=== PATIENT | male | born 1965 ===

== ENCOUNTER 2024-09-05 15:37 | Inpatient (IN) ==
[2024-09-05] MEDS ORDERED: POLYETHYLENE (MIRALAX) 17 GM PACK PO PRN (16:05)
--- NOTE | 2024-09-05 16:55 | History & Physical Report ---
Date of Service September 05, 2024 Assessment & Plan (1) NSTEMI (non-ST elevated myocardial infarction): Plan: -suggested by significantly elevated troponin -could be reactive to viral illness but significantly elevated BNP suggests underlying heart failure as well -ECG unremarkable, patient with no chest pain at this time -could be type 2 MA pending further workup, differential includes pericarditis, vavlular disease, viral cardiomyopathy, hyperthyroidism Plan: -check ESR/CRP -ordered basic lab workup, trend troponins, risk stratifcation labs -continue heparin -cardiology consulted, appreciate recs -telemetry monitoring in PCU -echo ordered (2) New onset of congestive heart failure: Plan: -strongly suggested by BNP of 6700, unlikely to be reactive -does have elevated JVP, trace pitting edema in bilateral LE although not grossly fluid overloaded Plan: -f/u echo results -telemetry monitoring (3) Viral respiratory illness: Plan: -no leukocytosis or left shift, or other markers of bacterial infection Plan: -check viral panel Plan I spent a total of 80 minutes in direct patient care, including [id number] time with the patient and/or family, reviewing medical records, ordering and reviewing diagnostic tests, and coordinating care with other healthcare providers. This time includes: history taking, physical examination, medical decision making, counseling, ECG interpretation, imaging interpretation, lab interpretation, orders, and education, excluding time spent in the performance of separately billed services. Admission and Anticipated Discharge Date Admission Date: September 05, 2024 History of Present Illness Chief Complaint: -nausea, vomiting, chills, SOB Primary Care Provider: NO PCP 59 yo male with pmhx of HTN, insomnia who presented to OSH for nausea, vomiting, chills and SOB. Found to have Na of 123, troponin of 1500, transferred to [facility] for higher level of care. 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 Patient seen and examined at bedside. present as well. Patient states he has been feeling ill for a few days. Had fever, cough, chills at home, fever up to 104. Began to improve on , but then got worse again. States he did not have chest pain at any time. Did endorse some SOB. Patient very active at home. Has had loss of appetite as well. Fatigue and weakness present. No tobacco use, no drug use, minimal alcohol use, full code at this time. OSH data: tachycardic to 93 otherwise hemodynamically stable, troponin Hs of 1600, CT chest without contrast pertinent for bilateral small pleural effusions, given aspirin, creatinine 1.23, Na 123, mildly elevated transaminases, BNP of 6700, D-dimer of 1091. Allergies Allergy/AdvReac Type Severity Reaction Status Date / Time Penicillins Allergy Mild Rash Verified 09/05/24 17:28 Past Med/Surg History Problem List New onset of congestive heart failure Viral respiratory illness NSTEMI (non-ST elevated myocardial infarction) Social History Smoking Status: Never smoker Second Hand Exposure: No; Do You Dip or Chew Tobacco: No; Tobacco Cessation Education Requested by Patient: No Hx Alcohol Use: No Hx Substance Use: No Preferred Language: Hungarian Communication Ability: Effective Diesel Machinist Required: No Beliefs That Will Affect Care: None Current Living Situation: Spouse Other Information That Helps Us Care for You: No Feels Safe at Home: Yes Safety Concerns: Feels Safe At This Time Assistive Devices: None Review of Systems Review of Systems: CONSTITUTIONAL: fatigue, weakness, chills EYES: Patient denies any visual symptoms. EARS, NOSE, AND THROAT: No difficulties with hearing. No symptoms of rhinitis or sore throat. CARDIOVASCULAR: Patient denies chest pains, palpitations, orthopnea and paroxysmal nocturnal dyspnea. RESPIRATORY: No dyspnea on exertion, no wheezing or cough. GI: No nausea, vomiting, diarrhea, constipation, abdominal pain, hematochezia or melena. : No urinary hesitancy or dribbling. No nocturia or urinary frequency. No abnormal urethral discharge. MUSCULOSKELETAL: No myalgias or arthralgias. NEUROLOGIC: No chronic headaches, no seizures. Patient denies numbness, tingling or weakness. PSYCHIATRIC: Patient denies problems with mood disturbance. No problems with anxiety. ENDOCRINE: No excessive urination or excessive thirst. DERMATOLOGIC: Patient denies any rashes or skin changes. Physical Exam Physical Exam: Gen: A&O 3 NAD HEENT: NCAT, EOMI, not icteric. External ears normal. No rhinorrhea. Moist mucous membranes. Elevated JVP to midneck Neck: Supple, full range of motion, no observable masses, No meningeal sign. Lungs: No Respiratory distress. CV: RRR, no edema. Abdomen: Soft, nondistended, No rebound tenderness. MSK: No joint swelling, no redness. No pitting edema bilaterally Skin: No rashes, petechiae, lesions. Normal color per patient. Neuro: Normal Gait, Grossly intact. Psych: Appropriate for situation. Results & Data Results & Data Vital Signs (Past 12 Hours) Vital Signs Temp Pulse Resp BP Pulse Ox O2 Del Method 09/05/24 16:43 87 09/05/24 16:04 37.1 C 14 134/88 98 Room Air Laboratory Results -personally reviewed, elevated BNP suggestive of new onset heart failure, elevated troponin suggestive of NSTEMI, ECG without changes Medications Administered Heparin Sodium/Dextrose (Heparin 39189 Unit/500 Ml D5w) 25,000 units in 500 mls @ 30 mls/hr IV .[id number] [facility]; Protocol Stop: 10/05/24 16:29 Last Admin: 09/05/24 17:07 Dose: 1,500 units/hr, 30 mls/hr Documented By: AM Co-signed By: DANIS Code Status & VTE Plan Code Status -full code VTE Prophylaxis Plan VTE Prophylaxis will be ordered: Yes
[2024-09-05] MEDS: Heparin IV Adult Wt-Based Standard *NO* INITIAL Bolus Protocol IV STA (17:07)
[2024-09-05] MEDS: HEPARIN 25000 UNIT/500 ML D5W 25,000 UNITS/500 ML BAG IV SCH (17:07)
[2024-09-05 19:25] LABS: Hematocrit (blood only) 38.8 % (42.0-52.0); Hemoglobin 13.8 g/dl (14.0-18.0); Immature Granulocytes # (auto) 0.04 K/uL (0.01-0.20); Immature Granulocytes % (auto) 0.5 %; Mean Corpuscular Hemoglobin 32.2 pg (25.0-34.0); Mean Corpuscular Volume 90.4 fL (80.0-100.0); Platelet Count 187 K/uL (130-400); RDW Standard Deviation 40.7 fL (36.4-46.3); Red Blood Count 4.29 M/uL (4.70-6.10); White Blood Count 8.82 K/ul (4.8-10.8)
[2024-09-05 19:30] LABS: Hemoglobin A1C 5.1 % (4.5-5.6)
[2024-09-05 19:36] LABS: Anion Gap 10.0 (3-11); Bilirubin,Total 1.6 mg/dl (0.2-1.0); Calcium 8.7 mg/dl (8.6-10.3); Carbon Dioxide 23.0 mmol/L (21-32); Chloride 94.0 mmol/L (98-107); Potassium 3.7 mmol/L (3.5-5.1); Sodium 127.0 mmol/L (136-145)
[2024-09-05 19:42] LABS: Alanine Aminotransferase 46.0 U/L (7-52); Albumin Globulin Ratio 1.1 (0.9-2); Alkaline Phosphatase 109.0 U/L (34-104); Blood Urea Nitrogen 21.0 mg/dl (6-23); Cholesterol 155.0 mg/dl (0-200); Creatinine Clr Calc Pharmacy 75.3 ml/min; Globulin 3.4 gm/dl (2.5-4.0); Glucose 130.0 mg/dl (70-99(Fasting)); HDL Cholesterol 31.0 mg/dl; Total Protein 7.0 gm/dl (6.0-8.3); Triglycerides 128.0 mg/dl (0-150)
[2024-09-05 19:56] LABS: Thyroid Stimulating Hormone 1.322 uIu/ml (0.300-4.500)
[2024-09-05 20:05] LABS: INR 1.0 (0.9-1.1); Partial Thromboplastin Time 40 Seconds (21-31); Prothrombin Time 10.8 Seconds (9.0-12.0)
[2024-09-05] MEDS: ATORVASTATIN 40 MG TAB PO SCH (20:27)
[2024-09-05 21:33] LABS: Chlamydia pneumoniae PCR Not Detected (NotDetected); Coronavirus 229E PCR Not Detected (NotDetected); Coronavirus CoV-2 (COVID19)PCR Not Detected (NotDetected); Coronavirus HKU1 PCR Not Detected (NotDetected); Coronavirus NL63 PCR Not Detected (NotDetected); Coronavirus OC43PCR Not Detected (NotDetected); Human Metapneumovirus PCR Not Detected (NotDetected); Parainfluenza Virus 1 PCR Not Detected (NotDetected); Parainfluenza Virus 2 PCR Not Detected (NotDetected); Parainfluenza Virus 3 PCR Not Detected (NotDetected); Parainfluenza Virus 4 PCR Not Detected (NotDetected); Respiratory Syncytial VirusPCR Not Detected (NotDetected); Rhinovirus/Enterovirus PCR Not Detected (NotDetected)
[2024-09-05] MEDS: ACETAMINOPHEN 325 MG TAB PO PRN (21:42)
[2024-09-05 22:04] LABS: Magnesium 2.2 mg/dl (1.7-2.4)
--- NOTE | 2024-09-05 22:18 | Communication Note ---
Date of Service: September 05, 2024 Patient noted to be febrile and tachycardic. Patient with bronchitis symptoms as per her account. Procalcitonin noted to be elevated AP Sepsis possible atypical pneumonia CS, Doxycycline
[2024-09-05] MEDS: ACETAMINOPHEN 325 MG TAB PO STA (23:02)
[2024-09-05 23:29] LABS: Sodium 126.0 mmol/L (136-145)
[2024-09-06 00:15] LABS: ANTI-Xa, UFH(UnfractionatedHep 0.28 IU/ml (0.3-0.7)
[2024-09-06] MEDS: CEFEPIME 2000MG 2,000 MG/20 ML SYR IV SCH (00:54)
[2024-09-06] MEDS: FUROSEMIDE INJ 20 MG/2 ML VIAL IV ONE (00:54)
--- NOTE | 2024-09-06 00:56 | XRay Report ---
Exam(s): XR CXR 1 VIEW EXAM: XR Chest, 1 View CLINICAL HISTORY: Reason for exam: hyponatremia,fever. TECHNIQUE: Frontal view of the chest. COMPARISON: No relevant prior studies available. FINDINGS: Lungs: Mild peribronchial thickening of the central and lower lobe bronchi with increased interstitial opacities in the lower lobes. No consolidation. Pleural space: Unremarkable. No pneumothorax. Heart: Unremarkable. No cardiomegaly. Mediastinum: Unremarkable. Normal mediastinal contour. Bones/joints: Unremarkable. No acute fracture. IMPRESSION: Bronchitis, which may be of infectious or inflammatory etiologies. No consolidation or pleural effusion. Electronically signed by: Eva Sutherland MD 09/06/24 00:55 AM
[2024-09-06] MEDS: DOXYCYCLINE HYCLATE 100 MG in DEXTROSE 5% MINI-B 100 ML IV STA (02:56)
[2024-09-06] MEDS: ONDANSETRON INJ 2 MG/ML 2 ML VIAL IV PRN (04:59)
[2024-09-06 08:16] LABS: Hematocrit (blood only) 34.4 % (42.0-52.0); Hemoglobin 12.5 g/dl (14.0-18.0); Mean Corpuscular Hemoglobin 32.5 pg (25.0-34.0); Mean Corpuscular Volume 89.4 fL (80.0-100.0); Platelet Count 211 K/uL (130-400); RDW Standard Deviation 40.5 fL (36.4-46.3); Red Blood Count 3.85 M/uL (4.70-6.10); White Blood Count 9.69 K/ul (4.8-10.8)
[2024-09-06 08:33] LABS: Alanine Aminotransferase 45.0 U/L (7-52); Albumin Globulin Ratio 1.3 (0.9-2); Alkaline Phosphatase 122.0 U/L (34-104); Anion Gap 8.0 (3-11); Bilirubin,Total 1.5 mg/dl (0.2-1.0); Blood Urea Nitrogen 21.0 mg/dl (6-23); Calcium 8.3 mg/dl (8.6-10.3); Carbon Dioxide 25.0 mmol/L (21-32); Chloride 95.0 mmol/L (98-107); Creatinine Clr Calc Pharmacy 72.1 ml/min; Globulin 2.8 gm/dl (2.5-4.0); Glucose 118.0 mg/dl (70-99(Fasting)); Magnesium 2.1 mg/dl (1.7-2.4); Potassium 3.4 mmol/L (3.5-5.1); Sodium 128.0 mmol/L (136-145); Total Protein 6.3 gm/dl (6.0-8.3)
[2024-09-06 08:42] LABS: ANTI-Xa, UFH(UnfractionatedHep 0.36 IU/ml (0.3-0.7)
[2024-09-06] MEDS: ASPIRIN 81 MG ECTAB PO SCH (08:45)
--- NOTE | 2024-09-06 11:01 | Cardiology Consultation ---
Date of Consultation September 06, 2024 Assessment & Plan (1) NSTEMI (non-ST elevated myocardial infarction): (2) Viral respiratory illness: Plan 59 year male with past medical history of HTN, presents from OSH with elevated troponin, recent viral URI. Troponin elevated, peaked at 909, now downtrending. ESR and CRP elevated. EKG with sinus rhythm, no ischemic changes. - feels well today on exam, denies chest pain - troponin downtrending, low suspicion of ACS, due to recent viral infection, consider myocarditis, pericarditis - echo read pending - small pericardial effusion on preliminary echo read, no wall motion abnormality, stop heparin - start colchicine 0.6 mg twice daily for minimum 3 months - continue aspirin, atorvastatin - continue to monitor on telemetry - follow up with outpatient cardiology Case discussed with attending physician, further recommendations per Dr. Villareal. I spent a total of 30 minutes on the date of service in preparation, delivery, and documentation of the care provided to this patient excluding any time spent in the performance of separately billed services. This visit was a split-shared visit with the substantial portion of the decision making performed by the supervising drywall applicator/billing provider. Aleksandra Lacy PA-C [facility] Cardiology [facility] Supervising Physician Co-Signing Physician Notes I have reviewed the advanced practitioner's documentation on the date of service referenced in note, and I agree with, and take responsibility for the plan of care. 59-year-old male with known history of hypertension presents with 3 days of h igh-grade fevers 104, viral symptoms generalized weakness chest discomfort worse with movement breathing. Went to [facility] noted to have significantly elevated troponin transferred to admitting for further evaluation. Patient denies anginal symptoms Assessment and plan Elevated troponins: In the setting of NSTEMI fever; inflammatory markers C RP is elevated, Troponins peaked at 909 downtrending Echocardiogram mild diffuse reduced function RV dilatation Clinical picture suggestive of myocarditis. Start colchicine Continue with Lipitor I spent a total of [40] minutes coordinating, documenting, and providing care for this patient excluding time spent in the performance of separately billed services or time spent by another provider. History of Present Illness Reason for Consultation: NSTEMI Requesting Physician: [facility] hospital[facility] Attending Physician: Mireya Conn MD History of Present Illness 59-year-old male with past medical history of hypertension, who initially presented to [facility] with nausea, chills, shortness of breath. 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 States he was not feeling well for a few days, thought it was a URI. Had mild shortness of breath, fatigue. Worsened so thought he should be checked. Labs with hyponatremia, elevated troponin 909 to 416, elevated CRP and ESR, BNP 537. EKG with NSR, no ischemic changes. Chest x-ray with bronchitis, no pleural effusion. Was started on heparin gtt. On exam today, he states he is feeling ok. Denies chest pain, shortness of breath, lightheadedness. Is active at baseline, no recent change in activity tolerance. Denies tobacco, drug use. Rare alcohol use. No history of LA, cardiac stents. Family history positive for mother with LA in her 60s. Allergies Allergy/AdvReac Type Severity Reaction Status Date / Time Penicillins Allergy Mild Rash Verified 09/06/24 14:38 Home Medications Medication Instructions Recorded Confirmed Type lisinopril 20 mg tablet 20 mg PO BID 09/06/24 09/06/24 History Patient History Social History Smoking Status: Never smoker Second Hand Exposure: No; Do You Dip or Chew Tobacco: No; Tobacco Cessation Education Requested by Patient: No Hx Alcohol Use: No Hx Substance Use: No Preferred Language: Icelandic Communication Ability: Effective Bakery Sales Clerk Required: No Beliefs That Will Affect Care: None Current Living Situation: Spouse Other Information That Helps Us Care for You: No Feels Safe at Home: Yes Safety Concerns: Feels Safe At This Time Assistive Devices: None Review of Systems Review of Systems: CONSTITUTIONAL: No change in weight, No weakness, No fatigue and No fevers, No sweats or chills. PULMONARY: No cough, sputum, or hemoptysis, No wheezing, No shortness of breath and No recent change in breathing. CARDIOVASCULAR: No chest pain, No dyspnea on exertion, No edema, No palpitations and No syncope. GASTROINTESTINAL: No abdominal pain, No change in bowel habits, No significant heartburn, No nausea, No vomiting, No diarrhea, No constipation, No blood in stools or black tarry stools. No dysphagia. HEMATOLOGIC: No abnormal bleeding and No bruising. NEUROLOGICAL: Normal balance, No headaches and No weakness. Physical Exam Physical Exam: General: No acute distress. A+Ox3. HEENT: Normocephalic. Atraumatic. PERRL. EOMI. Conjunctiva and sclera clear. NECK: No carotid bruits. No JVD. Carotid upstrokes are brisk. Heart: RRR. S1 and S2 noted. No murmur. No rubs or gallops. PMI non displaced. Nontender to palpation of chest. Lungs: Clear to auscultation. No wheezes. No rhonchi. No rales. Abdomen: Normal bowel sounds. Soft. Nontender. No masses or organomegaly. No abdominal bruits. Extremities: No edema. No clubbing or cyanosis. Pulses: radial=2/4, posterior tibial=2/4, dorsalis pedis = 2/4. NEURO: No focal deficits. PSYCH: Appropriate affect and insight. Results & Data Vital Signs (Past 12 Hours) Vital Signs Temp Pulse Resp BP Pulse Ox O2 Del Method 09/06/24 07:31 37.3 C 87 18 127/79 98 Room Air 09/06/24 03:35 37.0 C 82 14 117/79 97 Room Air 09/05/24 23:42 37.7 C H Laboratory Results Cardiac Enzymes 09/05/24 09/05/24 09/06/24 Range/Units 19:02 22:58 08:02 AST 40 H 36 (13-39) U/L Troponin I High Sens 909.5 H* 416.5 H* D (0-20) pg/ml B-Natriuretic Peptide 537 H (0-100) pg/ml Coagulation 09/05/24 Range/Units 19:02 PT 10.8 (9.0-12.0) Seconds APTT 40 H (21-31) Seconds B-Natriuretic Peptide 537 H (0-100) pg/ml Lipids 09/05/24 Range/Units 19:02 Triglycerides 128 (0-150) mg/dl Cholesterol 155 (0-200) mg/dl HDL Cholesterol 31 mg/dl Cholesterol/HDL Ratio 5.0 (0-5) CBC 09/05/24 09/06/24 Range/Units 19:02 08:02 WBC 8.82 9.69 (4.8-10.8) K/ul RBC 4.29 L 3.85 L (4.70-6.10) M/uL Hgb 13.8 L 12.5 L (14.0-18.0) g/dl Hct 38.8 L 34.4 L (42.0-52.0) % Plt Count 187 211 (130-400) K/uL Neut # (Auto) 7.02 H (1.40-6.50) K/uL Lymph # (Auto) 0.85 L (1.20-3.40) K/uL Marshall # (Auto) 0.63 H (0.11-0.59) K/uL Eos # (Auto) 0.26 (0.00-0.50) K/uL Baso # (Auto) 0.02 (0.00-0.20) K/uL Comprehensive Metabolic Panel 09/05/24 09/05/24 09/06/24 Range/Units 19:02 22:58 08:02 Sodium 127 L 126 L 128 L (136-145) mmol/L Potassium 3.7 3.4 L (3.5-5.1) mmol/L Chloride 94 L 95 L (98-107) mmol/L Carbon Dioxide 23 25 (21-32) mmol/L BUN 21 21 (6-23) mg/dl Creatinine 1.16 1.21 (0.6-1.4) mg/dl Glucose 130 H 118 H (70-99(Fasting)) mg/dl Calcium 8.7 8.3 L (8.6-10.3) mg/dl AST 40 H 36 (13-39) U/L ALT 46 45 (7-52) U/L Alkaline Phosphatase 109 H 122 H (34-104) U/L Total Protein 7.0 6.3 (6.0-8.3) gm/dl Albumin 3.6 3.5 (3.4-5.0) gm/dl Intake and Output 09/05/24 09/06/24 09/06/24 22:59 06:59 14:59 Intake Total 188 / 693.5 505.5 / 693.5 266.5 / 266.5 Output Total 900 / 2200 1300 / 2200 375 / 375 Balance -712 / -1506.5 -794.5 / -1506.5 -108.5 / -108.5 Intake: IV 68 / 333.5 265.5 / 333.5 266.5 / 266.5 Doxycycline Hyclate 100 mg In 100 / 100 Dextrose 5% Mini-B 100 ml @ 50 mls/hr IV NOW STA Rx#:[id number] Heparin 43069 Unit/500 ml D5w 68 / 233.5 165.5 / 233.5 266.5 / 266.5 25,000 units In 500 ml @ 1,600 UNITS/HR 32 mls/hr IV .[id number] [facility] Rx#:[id number] Oral 120 / 360 240 / 360 Output: Urine 900 / 2200 1300 / 2200 375 / 375 Other: Weight 88.451 kg 90.2 kg Weight Measurement Method Built in [facility] Built in [facility] Diagnostic Findings EKG 09/05/24: NSR 90 bpm Telemetry with sinus with PVCs, 80-90 bpm
--- NOTE | 2024-09-06 12:08 | Hospitalist Progress Note ---
Date of Service September 06, 2024 Assessment & Plan (1) New onset of congestive heart failure: (2) NSTEMI (non-ST elevated myocardial infarction): (3) Viral respiratory illness: Plan Pt is a 59 yo male with pmhx of HTN, insomnia who presented to OSH for nausea, vomiting, chills and SOB. Found to have Na of 123, troponin of 1500, transferred to [facility] for higher level of care. 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 NSTEMI (non-ST elevated myocardial infarction) suggested by significantly elevated troponin, 909.5 to 416.5 could be reactive to viral illness, possible CHF with elevated BNP of 6700 at OSH, currently >500 here ECG unremarkable, patient with no chest pain at this time could be type 2 MT pending further workup, differential includes pericarditis, valvular disease, viral cardiomyopathy, hyperthyroidism ESR/CRP elevated Viral panel unremarkable Chest XRAY noting bronchitis changes Chest CTA pending Echo pending IV heparin Cardiology consulted, appreciate recs Monitor on telemetry Congestive heart failure suggested by BNP of 6700, unlikely to be reactive On admission had, elevated JVP, trace pitting edema in bilateral LE although not grossly fluid overloaded f/u echo results telemetry monitoring Hyponatremia Na 123 at outside hospital, currently 128 today Urine sodium and osmolality pending In setting of respiratory findings on imaging, legionella ag ordered and pending Consider Nephrology input Bronchitis Noted on chest XR CTA chest ordered and pending Given concern for legionella, doxycycline switched to empiric levaquin Continue to monitor Diet: HH, low sodium DVT prophylaxis: IV heparin as above Dispo: home once medically stable Admission and Anticipated Discharge Date Admission Date: September 05, 2024 Subjective Pt was seen in the AM, resting comfortably in bed Denied chest pain, SOB or palps at the time asking about eating Review of Systems Review of Systems: All systems reviewed & are unremarkable except as noted in Subjective Physical Exam Physical Exam: General: Alert, oriented. No acute distress HEENT: NC/AT CV: RRR Resp: Breath sounds clear bilaterally, no increased effort of breathing Abdomen: Soft, nontender, nondistended Extremities: trace edema in lower extremities bilaterally. Results & Data Results & Data Vital Signs (Past 12 Hours) Vital Signs Temp Pulse Resp BP Pulse Ox O2 Del Method 09/06/24 11:48 36.7 C 93 H 18 109/72 97 Room Air 09/06/24 07:31 37.3 C 87 18 127/79 98 Room Air 09/06/24 03:35 37.0 C 82 14 117/79 97 Room Air Diagnostic Findings Chest X-Ray 09/05/24 21:36 Exam(s): XR CXR 1 VIEW EXAM: XR Chest, 1 View CLINICAL HISTORY: Reason for exam: hyponatremia,fever. TECHNIQUE: Frontal view of the chest. COMPARISON: No relevant prior studies available. FINDINGS: Lungs: Mild peribronchial thickening of the central and lower lobe bronchi with increased interstitial opacities in the lower lobes. No consolidation. Pleural space: Unremarkable. No pneumothorax. Heart: Unremarkable. No cardiomegaly. Mediastinum: Unremarkable. Normal mediastinal contour. Bones/joints: Unremarkable. No acute fracture. IMPRESSION: Bronchitis, which may be of infectious or inflammatory etiologies. No consolidation or pleural effusion. Electronically signed by: Eva Sutherland MD 09/06/24 00:55 AM
--- NOTE | 2024-09-06 13:20 | Electrocardiogram Report ---
Test Reason : Blood Pressure : */* mmHG Vent. Rate : 90 BPM Atrial Rate : 90 BPM P-R Int : 164 ms QRS Dur : 100 ms QT Int : 354 ms P-R-T Axes : 61 49 53 degrees QTcB Int : 433 ms Normal sinus rhythm Normal ECG No previous ECGs available Confirmed by Sahil Israel ([id number]) on 09/06/2024 1:20:17 PM Referred By: MAGDALENE DOVE Confirmed By: Sahil Israel
[2024-09-06] MEDS: POTASSIUM CHLORIDE CRTAB 20 MEQ TABCR PO STA (15:25)
--- NOTE | 2024-09-06 18:28 | CT Scan Report ---
EXAM: CT angio chest PE protocol CLINICAL HISTORY: PE. TECHNIQUE: CT angiography of the chest was performed with and without intravenous contrast with the following protocol: optiray 320 119ml, axial images with reconstructed coronal and sagittal images. Non-contrast images were initially acquired, followed by contrast-enhanced images in arterial and venous phases. Intravenous contrast 119ml Optiray 320 was administered using automated injection techniques. Bolus tracking was employed to optimize arterial phase imaging. One of these 3D techniques was utilized: Maximum Intensity Pixel (MIP), 3D Reconstructed Images, Volume Rendered Images, Surface Shaded Rendering. One of the following dose reduction techniques was utilized for this exam: Automated exposure control, adjustment of the mA and/or kV according to patient size, and use of iterative reconstruction. COMPARISON: None. FINDINGS: Aorta and Great Vessels: Ascending Aorta: Normal in caliber, no aneurysm, dissection, or significant atherosclerosis. Aortic Arch: Normal in caliber, no aneurysm, dissection, or significant atherosclerosis. Descending Aorta: Normal in caliber, no aneurysm, dissection, or significant atherosclerosis. Pulmonary Arteries: The main pulmonary artery and its branches are patent. No evidence of pulmonary embolism or significant stenosis. Heart: Cardiac Chambers: Normal in size. No evidence of cardiomegaly. Pericardium: No pericardial effusion or thickening. Lungs and Pleura: Left mild pleural effusion with underlying left lung basilar lobe consolidation?collapse Right pleural pulmonary reaction. Mediastinum: An enlarged nonspecific mediastinal lymph node seen in the left paratracheal group measuring 18 x 15 mm. No mediastinal mass Normal appearance of the trachea and central bronchi. Hilar Structures: Hilar structures are normal without enlargement. Chest Wall: No mass lesions or abnormalities in the chest wall. Vascular Structures: Superior Vena Cava: Patent without evidence of stenosis or thrombus. Inferior Vena Cava: Patent without evidence of stenosis or thrombus. Bones and Soft Tissues: No fractures, lytic, or blastic lesions of the visualized bony structures. Soft tissues are unremarkable. IMPRESSION: 1. No CT signs of acute PE. 2. Left mild pleural effusion with underlying left lung basilar lobe consolidation. 3. An enlarged nonspecific mediastinal lymph node was seen in the left paratracheal group. Electronically signed by Yan Judd 09-06-2024 6:28 PM
[2024-09-06] MEDS: COLCHICINE 0.6 MG TAB PO SCH (20:09)
[2024-09-06] MEDS ORDERED: DOXYCYCLINE HYCLATE 100 MG CAP PO SCH (21:00)
[2024-09-07 05:54] LABS: Hematocrit (blood only) 34.2 % (42.0-52.0); Hemoglobin 12.5 g/dl (14.0-18.0); Mean Corpuscular Hemoglobin 32.6 pg (25.0-34.0); Mean Corpuscular Volume 89.1 fL (80.0-100.0); Platelet Count 235 K/uL (130-400); RDW Standard Deviation 39.4 fL (36.4-46.3); Red Blood Count 3.84 M/uL (4.70-6.10); White Blood Count 8.90 K/ul (4.8-10.8)
[2024-09-07 06:10] LABS: Alanine Aminotransferase 42.0 U/L (7-52); Albumin Globulin Ratio 1.1 (0.9-2); Alkaline Phosphatase 174.0 U/L (34-104); Anion Gap 7.0 (3-11); Bilirubin,Total 1.4 mg/dl (0.2-1.0); Blood Urea Nitrogen 16.0 mg/dl (6-23); Calcium 8.5 mg/dl (8.6-10.3); Carbon Dioxide 28.0 mmol/L (21-32); Chloride 95.0 mmol/L (98-107); Creatinine Clr Calc Pharmacy 68.7 ml/min; Globulin 3.0 gm/dl (2.5-4.0); Glucose 105.0 mg/dl (70-99(Fasting)); Magnesium 2.2 mg/dl (1.7-2.4); Potassium 3.5 mmol/L (3.5-5.1); Sodium 130.0 mmol/L (136-145); Total Protein 6.2 gm/dl (6.0-8.3)
--- NOTE | 2024-09-07 09:53 | Nephrology Consultation ---
Date of Consultation September 07, 2024 Assessment & Plan (1) Hyponatremia: Appears like new onset Hyponatremia. Na was 123 on presentation to [facility] but is already 130 so much better and at correct rate of correction. got some NS and then one dose of iv lasix. but currently getting neither. No meds pre admission to account for low Na. Given rising na no need to change course here. urine na was low but could be from new onset CHF. Could have been eating somewhat low solute diet and relatively higher fluid intake. Does not appear grossly volume overloaded nor depleted. Check BMP q12 at least till tomorrow. would not add any special meds for hyponatremia given self correcting. Rec for Discharge: 1. FFR 60 oz per day. eat more protein. 2 No special meds needed. 3 BMP on sat at [facility] order to be placed by Nephro Nursing. Will decide about nephrology follow up after lab result that day. 4 Stable for Discharge 5 Plan discussed with primary team (2) New onset of congestive heart failure: Noted and reviewed cards note (3) NSTEMI (non-ST elevated myocardial infarction): reviewed cards note and ECHO report. Plan time spent 62 mins History of Present Illness Reason for Consultation: Hyponatremia Attending Physician: Mireya Conn MD History of Present Illness 59/M at good baseline health other than HTN came in to [facility] first with nausea, vomiting, chills and SOB. Found to have Na of 123, troponin of 1500, transferred to [facility] for higher level of care. 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 here na was 128 and this AM is 130. Cardiology consult and ECHO done already--Has NSTEMI, With reduced LVEF of 45% and small pericardial effusion. Also though of as having recent Viral URI. Cards started on Colcihine for effusion. Currently NPO. No iv fluids. Na has risen up nicely correct rate to 130 from 123. Vital Signs appear fine. Was drinking lot of fluids and not eating anything solid food. ROS--see HPI 12 Systems reviewed and otherwise negative. Physical Exam Physical Exam: General: No acute distress. A+Ox3. HEENT: Normocephalic. Atraumatic. PERRL. EOMI. Conjunctiva and sclera clear. NECK: No carotid bruits. No JVD. Carotid upstrokes are brisk. Heart: RRR. S1 and S2 noted. No murmur. No rubs or gallops. PMI non displaced. Nontender to palpation of chest. Lungs: Clear to auscultation. No wheezes. No rhonchi. No rales. Abdomen: Normal bowel sounds. Soft. Nontender. No masses or organomegaly. No abdominal bruits. Extremities: No edema. No clubbing or cyanosis. NEURO: No focal deficits. Allergies Allergy/AdvReac Type Severity Reaction Status Date / Time Penicillins Allergy Mild Rash Verified 09/06/24 14:38 Home Medications Medication Instructions Recorded Confirmed Type lisinopril 20 mg tablet 20 mg PO BID 09/06/24 09/06/24 History Patient History Social History Smoking Status: Never smoker Second Hand Exposure: No; Do You Dip or Chew Tobacco: No; Tobacco Cessation Education Requested by Patient: No Hx Alcohol Use: No Hx Substance Use: No Preferred Language: Turkish Communication Ability: Effective Restaurant Assistant Required: No Beliefs That Will Affect Care: None Current Living Situation: Spouse Other Information That Helps Us Care for You: No Feels Safe at Home: Yes Safety Concerns: Feels Safe At This Time Assistive Devices: None Results & Data Vital Signs (Past 12 Hours) Vital Signs Temp Pulse Pulse Resp BP Pulse Ox O2 Del Method 09/07/24 07:28 37.1 C 108 H 18 130/82 98 Room Air 09/07/24 07:19 85 09/07/24 02:36 36.7 C 87 18 120/88 95 Room Air 09/06/24 23:05 36.4 C L 84 16 135/90 97 Room Air
--- NOTE | 2024-09-07 10:56 | Cardiology Progress Note ---
Date of Service September 07, 2024 Assessment & Plan (1) Viral syndrome: (2) Elevated troponin: Plan 59-year-old male without prior cardiac disease presented with several day history of acute febrile illness with associated weakness and malaise. Mild breathlessness when active but jog, worked out in gym. Ultimately sought evaluation due to persistent symptoms with noted elevated troponin on laboratory screening. Transferred from [facility] Serial EKGs normal Echocardiogram by report and personal review low normal LV function EF 45-50% with trivial pericardial effusion. No segmental abnormalities are present. No valvular disease Impression: Acute viral myocarditis. Recommendations: Continue colchicine. Add low-dose beta-zeinab with metoprolol succinate 12.5 mg p.o. daily Supplement potassium Restrict activities in hospital and post discharge Lexiscan stress nuclear imaging with echocardiogram 2 to 3 weeks Cardiac MRI if LV systolic function persistently depressed Admission and Anticipated Discharge Date Admission Date: September 05, 2024 Subjective Patient was seen and examined, chart, medications, telemetry reviewed. Patient with mild malaise but no other findings or complaints. Feels well ambulatory in room. No chest pains or pleuritic pain currently afebrile. No arrhythmias on telemetry EKG today normal tracing Review of Systems Review of Systems: All systems reviewed & are unremarkable except as noted in Subjective Physical Exam Constitutional: WD/WN, vitals as above Eyes: PERRL, conjunctivae normal, anicteric sclerae ENMT: external ear and nose normal, oropharynx normal Neck: trachea midline, no thyromegaly Respiratory: normal respiratory effort, lungs clear to auscultation Cardiovascular: Rate/Rhythm: regular rate and regular rhythm Heart Sounds: normal S1; no murmur and no cardiac rub Vessels: no JVD Extremities: no edema Gastrointestinal (Abdomen): normal bowel sounds, soft, nontender, no hepatosplenomegaly Musculoskeletal: no cyanosis or clubbing, extremities motor strength 5/5 Results & Data Vital Signs (Past 12 Hours) Vital Signs Temp Pulse Pulse Resp BP Pulse Ox O2 Del Method 09/07/24 07:28 37.1 C 108 H 18 130/82 98 Room Air 09/07/24 07:19 85 09/07/24 02:36 36.7 C 87 18 120/88 95 Room Air 09/06/24 23:05 36.4 C L 84 16 135/90 97 Room Air Laboratory Results Laboratory Results - last 24 hr 09/06/24 09/07/24 09/07/24 Unknown 05:34 Unknown WBC 8.90 RBC 3.84 L Hgb 12.5 L Hct 34.2 L MCV 89.1 MCH 32.6 MCHC 36.5 H RDW Std Deviation 39.4 RDW Coeff of Yadira 12.0 Plt Count 235 MPV 9.1 L Sodium 130 L Potassium 3.5 Chloride 95 L Carbon Dioxide 28 Anion Gap 7 BUN 16 Creatinine 1.27 Est Cr Clr Drug Dosing 68.7 eGFR 65.08 BUN/Creatinine Ratio 12.6 Glucose 105 H Calcium 8.5 L Phosphorus 3.5 Magnesium 2.2 Total Bilirubin 1.4 H AST 32 ALT 42 Alkaline Phosphatase 174 H Total Protein 6.2 Albumin 3.2 L Globulin 3.0 Albumin/Globulin Ratio 1.1 Urine Osmolality 320 L Ur Random Sodium 10 Urine Legionella Ag Pending
--- NOTE | 2024-09-07 15:14 | Hospitalist Progress Note ---
Date of Service September 07, 2024 Assessment & Plan (1) New onset of congestive heart failure: (2) NSTEMI (non-ST elevated myocardial infarction): (3) Viral respiratory illness: Plan Pt is a 59 yo male with pmhx of HTN, insomnia who presented to OSH for nausea, vomiting, chills and SOB. Found to have Na of 123, troponin of 1500, transferred to [facility] for higher level of care. 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 NSTEMI (non-ST elevated myocardial infarction) suggested by significantly elevated troponin, 909.5 to 416.5 could be reactive to viral illness, possible CHF with elevated BNP of 6700 at OSH, currently >500 here ECG unremarkable, patient with no chest pain at this time could be type 2 MN pending further workup, differential includes pericarditis, valvular disease, viral cardiomyopathy, hyperthyroidism ESR/CRP elevated Viral panel unremarkable Chest XRAY noting bronchitis changes Chest CTA with no DVT Echo with EF 45-50%, RV mildly dilated, trace MR IV heparin has since been discontinued Cardiology consulted, appreciate recs -started on colchicine for a viral pericarditis -started on Toprol low dose Monitor on telemetry Congestive heart failure suggested by BNP of 6700, unlikely to be reactive Echo as above telemetry monitoring Hyponatremia Na 123 at outside hospital, currently 128 today Urine sodium and osmolality pending In setting of respiratory findings on imaging, legionella ag ordered and pending Nephrology consulted Bronchitis Noted on chest XR CTA chest ordered and pending Given concern for legionella, doxycycline switched to empiric levaquin Continue to monitor Diet: HH, low sodium DVT prophylaxis: IV heparin as above Dispo: home once medically stable Admission and Anticipated Discharge Date Admission Date: September 05, 2024 Subjective Pt was seen in the AM with Nephrology at bedside. Per nursing anxious for discharge. Pt with partner at bedside. Case discussed with cardiology and nephrology. Per cardiology would ideally like him to stay for further workup and management including a repeat echo tomorrow Per nephrology, his Na level is stable Review of Systems 2 Review of Systems: All systems reviewed & are unremarkable except as noted in Subjective Physical Exam Physical Exam: General: Alert, oriented. No acute distress HEENT: NC/AT CV: RRR Resp: Breath sounds clear bilaterally, no increased effort of breathing Abdomen: Soft, nontender, nondistended Extremities: no edema in lower extremities bilaterally. Results & Data Results & Data Vital Signs (Past 12 Hours) Vital Signs Temp Pulse Pulse Resp BP Pulse Ox O2 Del Method 09/07/24 13:52 37.0 C 88 17 136/88 96 Room Air 09/07/24 11:11 37.0 C 86 18 134/90 94 Room Air 09/07/24 07:28 37.1 C 108 H 18 130/82 98 Room Air 09/07/24 07:19 85 09/07/24 02:36 36.7 C 87 18 120/88 95 Room Air
[2024-09-07 20:45] VITALS: RESP 18
[2024-09-08 06:44] LABS: Hematocrit (blood only) 35.5 % (42.0-52.0); Hemoglobin 12.6 g/dl (14.0-18.0); Mean Corpuscular Hemoglobin 31.7 pg (25.0-34.0); Mean Corpuscular Volume 89.4 fL (80.0-100.0); Platelet Count 299 K/uL (130-400); RDW Standard Deviation 40.8 fL (36.4-46.3); Red Blood Count 3.97 M/uL (4.70-6.10); White Blood Count 11.01 K/ul (4.8-10.8)
[2024-09-08 07:04] LABS: Alanine Aminotransferase 43.0 U/L (7-52); Albumin Globulin Ratio 1.1 (0.9-2); Alkaline Phosphatase 252.0 U/L (34-104); Anion Gap 10.0 (3-11); Bilirubin,Total 1.3 mg/dl (0.2-1.0); Blood Urea Nitrogen 15.0 mg/dl (6-23); Calcium 8.5 mg/dl (8.6-10.3); Carbon Dioxide 26.0 mmol/L (21-32); Chloride 96.0 mmol/L (98-107); Creatinine Clr Calc Pharmacy 74.6 ml/min; Globulin 3.1 gm/dl (2.5-4.0); Glucose 125.0 mg/dl (70-99(Fasting)); Magnesium 2.3 mg/dl (1.7-2.4); Potassium 3.5 mmol/L (3.5-5.1); Sodium 132.0 mmol/L (136-145); Total Protein 6.6 gm/dl (6.0-8.3)
[2024-09-08] MEDS: METOPROLOL SUCC 25MG EXT REL TAB PO SCH (08:47)
[2024-09-08] MEDS ORDERED: METOPROLOL SUCC 25MG EXT REL TAB PO SCH (09:00)
--- NOTE | 2024-09-08 10:02 | Cardiology Progress Note ---
Date of Service September 08, 2024 Assessment & Plan (1) Viral syndrome: (2) Elevated troponin: (3) Myocarditis: Plan 59-year-old male without prior cardiac disease presented with several day history of acute febrile illness with associated weakness and malaise. Mild breathlessness when active but jog, worked out in gym. Ultimately sought evaluation due to persistent symptoms with noted elevated troponin on laboratory screening. Transferred from [facility] Serial EKGs normal Echocardiogram by report and personal review low normal LV function EF 45-50% with trivial pericardial effusion. No segmental abnormalities are present. No valvular disease Impression: Acute viral myocarditis. Recommendations: Continue colchicine. Add low-dose beta-zeinab with metoprolol succinate 12.5 mg p.o. daily Supplement potassium Restrict activities in hospital and post discharge Lexiscan stress nuclear imaging with echocardiogram 2 to 3 weeks Cardiac MRI if LV systolic function persistently depressed 09/08/2024 1. Acute viral syndrome with viral myocarditis, elevated troponin 2. Trivial pericardial effusion 3. Hypertension 4. Hyponatremia, improving Recommendations: Stable for discharge Continue colchicine Metoprolol succinate 25 mg p.o. daily Resume lisinopril at 20 mg/day in 3 days BMP 1 week Will schedule cardiac MRI as outpatient Cardiology follow-up 2 to 3 weeks No strenuous activity for 4 weeks Admission and Anticipated Discharge Date Admission Date: September 05, 2024 Subjective Patient seen and examined, chart, medications, telemetry reviewed. Patient ambulatory in room and hallway and feeling improved. No chest pains or shortness of breath no pleuritic discomfort. No arrhythmias on telemetry. Review of Systems Review of Systems: All systems reviewed & are unremarkable except as noted in Subjective Physical Exam Constitutional: WD/WN, vitals as above Eyes: PERRL, conjunctivae normal, anicteric sclerae ENMT: external ear and nose normal, oropharynx normal Neck: trachea midline, no thyromegaly Respiratory: normal respiratory effort, lungs clear to auscultation Cardiovascular: Rate/Rhythm: regular rate and regular rhythm Heart Sounds: normal S1; no murmur and no cardiac rub Vessels: no JVD Extremities: no edema Gastrointestinal (Abdomen): normal bowel sounds, soft, nontender, no hepatosplenomegaly Musculoskeletal: no cyanosis or clubbing, extremities motor strength 5/5 Results & Data Vital Signs (Past 12 Hours) Vital Signs Temp Pulse Pulse Resp BP BP Pulse Ox 09/08/24 09:17 77 09/08/24 07:58 36.9 C 79 18 151/90 H 96 09/08/24 04:36 36.9 C 85 18 144/88 H 96 09/07/24 23:49 37.1 C 98 H 18 151/93 H 98 O2 Del Method 09/08/24 09:17 09/08/24 07:58 Room Air 09/08/24 04:36 Room Air 09/07/24 23:49 Room Air Laboratory Results Laboratory Results - last 24 hr 09/08/24 06:12 WBC 11.01 H RBC 3.97 L Hgb 12.6 L Hct 35.5 L MCV 89.4 MCH 31.7 MCHC 35.5 RDW Std Deviation 40.8 RDW Coeff of Yadira 12.3 Plt Count 299 MPV 9.1 L Sodium 132 L Potassium 3.5 Chloride 96 L Carbon Dioxide 26 Anion Gap 10 BUN 15 Creatinine 1.17 Est Cr Clr Drug Dosing 74.6 eGFR 71.81 BUN/Creatinine Ratio 12.8 Glucose 125 H Calcium 8.5 L Phosphorus 4.0 Magnesium 2.3 Total Bilirubin 1.3 H AST 37 ALT 43 Alkaline Phosphatase 252 H Total Protein 6.6 Albumin 3.5 Globulin 3.1 Albumin/Globulin Ratio 1.1 PG Care Time/CCT Total # of Minutes Spent Total Time Spent with Patient: Total time spent is greater than 50% in coordination of care (as documented) at patient's floor/unit and/or counseling patient: Coding Level of Care Code 02474 SUB INP/OBS CARE 3/50MIN Diagnoses Viral syndrome B34.9 Elevated troponin R79.89 Myocarditis I51.4
[2024-09-08 11:20] VITALS: BP 117/82; PULSE 86; TEMP 98.6; O2SAT 99
--- NOTE | 2024-09-08 12:35 | Discharge Summary ---
Discharge Summary Date of Service September 08, 2024 Principal Dx & Hospital Course #1 = Principal Diagnosis (1) New onset of congestive heart failure: (2) NSTEMI (non-ST elevated myocardial infarction): (3) Viral respiratory illness: Plan Mr. Thompson is a 59 yo male with pmhx of HTN, insomnia who presented to OSH for nausea, vomiting, chills and SOB. Found to have Na of 123, troponin of 1500, transferred to [facility] for higher level of care. Patient was ultimately found to have myocarditis and pericarditis. #NSTEMI (non-ST elevated myocardial infarction) suggested by significantly elevated troponin, 909.5 to 416.5 could be reactive to viral illness, possible CHF with elevated BNP of 6700 at OSH, currently >500 here ECG unremarkable, patient with no chest pain at this time ESR/CRP elevated, Viral panel unremarkable Chest XRAY noting bronchitis changes Chest CTA with no DVT Echo with EF 45-50%, RV mildly dilated, trace MR IV heparin has since been discontinued Cardiology consulted, appreciate recs -started on colchicine for a viral pericarditis -started on Toprol low dose #Hyponatremia Na 123 at outside hospital, currently 132 on d/c improving #Bronchitis Noted on chest XR CTA chest ordered and pending Given concern for legionella, complete levaquin course Notes For Next Care Provider Repeat BMP 1 week Follow up with Cardiology for stress echo Medication Changes From Visit Atorvastatin 40mg qam ASA 81mg daily Colchicine 0.6 BID x 3 months Admission HPI Per Admitting Provider 59 yo male with pmhx of HTN, insomnia who presented to OSH for nausea, vomiting, chills and SOB. Found to have Na of 123, troponin of 1500, transferred to [facility] for higher level of care. 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 Patient seen and examined at bedside. present as well. Patient states he has been feeling ill for a few days. Had fever, cough, chills at home, fever up to 104. Began to improve on , but then got worse again. States he did not have chest pain at any time. Did endorse some SOB. Patient very active at home. Has had loss of appetite as well. Fatigue and weakness present. No tobacco use, no drug use, minimal alcohol use, full code at this time. OSH data: tachycardic to 93 otherwise hemodynamically stable, troponin Hs of 1600, CT chest without contrast pertinent for bilateral small pleural effusions, given aspirin, creatinine 1.23, Na 123, mildly elevated transaminases, BNP of 6700, D-dimer of 1091. Admission Exam Per Admitting Provider CONSTITUTIONAL: fatigue, weakness, chills EYES: Patient denies any visual symptoms. EARS, NOSE, AND THROAT: No difficulties with hearing. No symptoms of rhinitis or sore throat. CARDIOVASCULAR: Patient denies chest pains, palpitations, orthopnea and paroxysmal nocturnal dyspnea. RESPIRATORY: No dyspnea on exertion, no wheezing or cough. GI: No nausea, vomiting, diarrhea, constipation, abdominal pain, hematochezia or melena. : No urinary hesitancy or dribbling. No nocturia or urinary frequency. No abno rmal urethral discharge. MUSCULOSKELETAL: No myalgias or arthralgias. NEUROLOGIC: No chronic headaches, no seizures. Patient denies numbness, tingling or weakness. PSYCHIATRIC: Patient denies problems with mood disturbance. No problems with anxiety. ENDOCRINE: No excessive urination or excessive thirst. DERMATOLOGIC: Patient denies any rashes or skin changes. Discharge Exam Constitutional WD/WN, vitals as above Respiratory normal respiratory effort, lungs clear to auscultation Cardiovascular RRR, no murmur, no edema Gastrointestinal (Abdomen) normal bowel sounds, soft, nontender, no hepatosplenomegaly Updated Medication List Medication Instructions Recorded Confirmed Type lisinopril 20 mg tablet 20 mg PO BID 09/06/24 09/06/24 History aspirin 81 mg tablet,delayed 81 mg PO QAM #0 tabs 09/08/24 Rx release atorvastatin 40 mg tablet 40 mg PO QAM 30 days #30 tabs 09/08/24 Rx colchicine 0.6 mg tablet (Colcrys) 0.6 mg PO BID 87 days #174 tabs 09/08/24 Rx levofloxacin 750 mg tablet 750 mg PO DAILY@1100 4 days #4 tabs 09/08/24 Rx metoprolol succinate 25 mg 25 mg PO QAM #30 tabs 09/08/24 Rx tablet,extended release 24 hr Hospital Stay Data Consultations 09/05/24 16:06 Consult Cardiology Routine 09/07/24 09:15 Consult Nephrology Routine Diagnostic Imagining Performed 09/06/24 14:53 CT angio chest PE protocol Urgent Pending Results Patient Have Any Pending Studies at Discharge: No Discharge Instructions Given to Patient (Per Discharging Provider) You were admitted and found to have pericarditis and myocarditis. You were evaluated by Cardiology who recommends 3 months of colchicine two times a day. You were also started on a low-dose beta-zeinab with metoprolol succinate 12.5 mg by mouth daily You will be contacted by Cardiology to follow up with their team and schedule an stress test, with possible cardiac MRI. Do not play sports or do tiring exercise until your Renal Dialysis Technician says it's okay. Rest when you feel tired. Eat heart-healthy foods. This includes vegetables, fruits, nuts, beans, lean meat, fish, and whole grains. Limit sodium, alcohol, and sugar. Do not smoke or allow others to smoke around you. Avoid alcohol at this time Manage other health problems such as diabetes, high blood pressure, and high cholesterol. Keep track of your weight daily. Weigh yourself every day at the same time of day, on the same scale, in the same amount of clothing. Total Time Total Time Spent Total Time Spent (In Minutes): 45
--- NOTE | 2024-09-09 15:43 | Electrocardiogram Report ---
Test Reason : Blood Pressure : */* mmHG Vent. Rate : 87 BPM Atrial Rate : 87 BPM P-R Int : 184 ms QRS Dur : 106 ms QT Int : 380 ms P-R-T Axes : 47 38 27 degrees QTcB Int : 457 ms Normal sinus rhythm Normal ECG When compared with ECG of 05-Sep-2024 16:44, No significant change was found Confirmed by Jeremie Navarrete ([id number]) on 09/09/2024 3:42:53 PM Referred By: Sung Patino Confirmed By: Jeremie Navarrete
== END 2024-09-08 13:52 | disposition home or self-care (01) | DRG 315 ==
LOC: SUATTDRO 15:37 → 2E 15:37